=== PATIENT | female | born 1985 | race Caucasian/White ===

== ENCOUNTER 2020-11-15 17:41 | Outpatient (REF) | payer SELFPAY ==
[2020-11-17 10:15] LABS: Varicella IgG Antibody Positive (See Note)
== END 2020-11-15 17:42 | disposition home or self-care (01) ==
LOC: LBN 17:41
PROVIDERS: Visit Provider Nurse Practitioner Family
DX: Z13.9 Encounter for screening, unspecified (principal)
CPT/HCPCS: 86787

== ENCOUNTER 2021-08-04 01:50 | Outpatient (CLI) | payer OTHER, SELFPAY ==
[2021-08-04 12:36] LABS: HCT 37.7 % (36.0-46.0); HGB 12.6 g/dL (11.2-15.7); MCH 31.2 pg (27.0-33.0); MCHC 33.4 % (32.0-36.0); MCV 93 fL (80-95); MPV 10.9 fL (8.0-11.0); Platelet Count 287 10^3/uL (130-400); RBC 4.04 10^6/uL (3.93-5.22); RDW 11.8 % (11.7-14.6); RDW-SD 40.2 fL
[2021-08-04 13:25] LABS: ALT 22 U/L (14-59); AST 13 U/L (15-37); Albumin 3.9 g/dL (3.4-5.0); Alkaline Phosphatase 94 U/L (46-116); Anion Gap 12.6 mmol/L (3-11); BUN 25 mg/dL (7-18); Bilirubin, Total 0.3 mg/dL (0.2-1.0); CO2 25.4 mmol/L (21.0-32.0); CREATININE 0.8 mg/dL (0.55-1.02); Calcium 8.6 mg/dL (8.5-10.1); Calculated LDL 157 mg/dL (<100); Chloride 103 mmol/L (98-107); Cholesterol 245 mg/dL (<200); Glucose 105 mg/dL (74-106); HDL Cholesterol 40 mg/dL (40-60); Potassium 3.7 mmol/L (3.5-5.1); Sodium 141 mmol/L (136-145); TSH (W/Ref FT4) 1.32 uIU/mL (0.36-3.74); Total Protein 7.4 g/dL (6.4-8.2); Triglyceride 242 mg/dL (<150)
[2021-08-07 12:57] LABS: TB Interpretation Negative (Negative)
== END 2021-08-04 01:51 | disposition home or self-care (01) ==
LOC: LBO 01:51
PROVIDERS: PCP Nurse Practitioner; Visit Provider Nurse Practitioner
DX: I10 Essential (primary) hypertension (principal); R53.83 Other fatigue; E66.9 Obesity, unspecified; Z83.3 Family history of diabetes mellitus; Z11.1 Encounter for screening for respiratory tuberculosis
CPT/HCPCS: 36415; 80053; 80061; 85027; 84443; 86480

== ENCOUNTER 2021-08-24 00:53 | Emergency (ER) | payer OTHER, SELFPAY ==
[2021-08-24 00:57] VITALS: BP 145/100; PULSE 117; RESP 18; TEMP 36.4; O2SAT 97
--- NOTE | 2021-08-24 01:15 | W.ED.GENAD ---
Discharge Plan Disposition Patient Disposition: HOME Condition: Stable Discharge Details Clinical Impression: Migraine, Nausea and vomiting Primary Care Provider: Kirsten Fowler ED Provider: Aron Barraza Home Meds and New Rx's Prescriptions: New ondansetron 4 mg tablet,disintegrating 4 mg PO Q8H PRN (Reason: nausea and vomiting) Qty: 30 0RF Continued sumatriptan succinate 50 mg tablet See Rx Instructions PO .COMPLEX Rx Instructions: take 1 tab at onset of headache; if no relief may repeat 1 tab after at least 2 hrs; max = 4 tabs/24 hr PO Ozempic 0.25 mg or 0.5 mg(2 mg/1.5 mL) Pen Injector 0.25 mg SUBCUT 4-8XD Discharge Instructions Instructions: Migraine Headache (ED), Acute Nausea and Vomiting (ED) Additional Instructions: if symptoms continue in a week follow up with your primary care provider you can take ibuprofen and tylenol as needed, follow dosing instructions on packaging if you feel more ill, have persistent vomiting or severe worsening pain return to the emergency department Medical Decision Making 36 yo female who states she has a history of migraines, DM, who comes in with n/v that started about 7 hours ago. She felt well during the day and then started to have nausea that progressed to vomit. She denies fevers, chills, chest pain, shortness of breath. She started to have slowly worsening head pain and states it feels similar to her prior migraines. She arrives stable with normal gait. CN II-XII intact, perrl, eomi, no meningismus, soft nontender abdomen, no focal motor or sensation deficits. Her symptoms seem most consistent with migraine and possible food related illness. No findings on exam to suggest surgical abdominal pathology such as sbo or cholecystitis and do not feel imaging of the abdomen/pelvis indicated. Her symptoms were slowly worsening in terms of her head pain, not thunderclap so doubt intracranial hemorrhage and no findings to suggest keno dealer infection. labs unremarkable and she feels better and would like to go home, stable exam so do not feel further testing indicated. Will provide prn zofran and advised to f/u with pcp and return precautions given Differential Diagnosis Differential Diagnosis: food illness, migraine, gastroenteritis Lab Data Lab results reviewed: Yes I reviewed the patient's lab results. HPI General Mode of arrival: ambulatory. Date/Time Provider Initiated Documentation: 08/24/21 00:53. Limitations to Documentation: no limitations. Information obtained by: patient. History of Present Illness 36 year old F presents to the emergency department with the chief complaint of nausea and vomit, described as moderate, Patient started experiencing this hour(s) (7) and it has been constant. No relieving factors improve symptom(s), No exacerbating factors reported . Patient notes other (migraine). Related Data Home Medications Medication Instructions Recorded Confirmed sumatriptan succinate 50 mg tablet See Rx Instructions PO .COMPLEX 08/03/21 08/24/21 ondansetron 4 mg disintegrating 4 mg PO Q8H PRN nausea and 08/24/21 tablet vomiting #30 tabs semaglutide 0.25 mg or 0.5 mg (2 0.25 mg subcut 4-8XD 08/24/21 08/24/21 mg/1.5 mL) subcutaneous pen injector (Ozempic) Previous Rx's Medication Instructions Recorded ondansetron 4 mg disintegrating 4 mg PO Q8H PRN nausea and 08/24/21 tablet vomiting #30 tabs Allergies Allergy/AdvReac Type Severity Reaction Status Date / Time bismuth subsalicylate Allergy Intermediate rash Verified 08/24/21 01:02 [From Pepto-Bismol] hydrocortisone Allergy Intermediate rash Verified 08/24/21 01:02 penicillin V Allergy Intermediate rash Verified 08/24/21 01:02 Sulfa (Sulfonamide Allergy Intermediate Verified 08/24/21 01:02 Antibiotics) monostat Allergy Intermediate Uncoded 08/24/21 01:02 General Stated Complaint: Nausea/Vomit/Diar LOLIS: 3 Review of Systems All systems reviewed & are unremarkable except as noted in HPI and below Constitutional Constitutional: Denies chills, Denies fever(s) and Denies weakness ENT Ears, Nose, Mouth, and Throat: Denies change in voice Cardiovascular Cardiovascular: Denies chest pain and Denies dyspnea Respiratory Respiratory: Denies cough and Denies dyspnea Gastrointestinal Gastrointestinal: Denies abdominal pain Genitourinary Genitourinary: Denies dysuria Neurologic Neurologic: Denies weakness PFSH All Active Problems (Updated 08/24/21 @ 02:40 by Aron Barraza MD) Migraine (Chronic) Nausea and vomiting (Acute) Obesity with serious comorbidity (Acute) Prediabetes (Acute) Obesity (Chronic) Family history of diabetes mellitus in father (Acute) Family History (Updated 08/02/21 @ 10:29 by Ana Laura Frazier) Father Alcohol use disorder Mother Cervical cancer Ovarian cancer Lung cancer Brain cancer Maternal Grandmother Diabetes Heart disease Hypertension Maternal Grandfather Diabetes Paternal Grandmother Diabetes Paternal Grandfather Diabetes Other Breast cancer Social History (Updated 08/03/21 @ 09:36 by Hedy Polk LPN) Smoking/Tobacco Use Status: Never Smoking risk assessment performed?: Yes Alcohol Intake: current Alcohol Intake frequency: holidays/special occasions only Drug use: Never Substance use type: does not use Adopted: No Caregiver/Support person: No Foster care: No Household members: spouse Housing: apartment Number of Children: 0 Communication Needs: None Education Level: college Details: Associate's Degree Do you need help understanding health information?: Never current occupation: RN Pets and animals: Yes Pets and animals: dog(s) Sexually active: Yes Do you think of yourself as: straight/heterosexual Current gender identity: female What is your relationship status?: living with partner How often do you talk on the phone with friends or family?: three or more times per week How often do you get together with friends or relatives?: three or more times per week Do you belong to any clubs or organized social groups?: no Panel score (0-1 are the most socially isolated patients): 2 What type of physical activity do you participate in: walking Duration: 30-45 minutes/day Frequency: 3-4 times per week Alison/Protestant: None Special alison needs: No Seatbelt use: always Helmet use: Yes Helmet use: always Drive intox or ride w/intox mobile lounge driver or operator: No Working smoke detector in home: Yes Fire extinguisher in home: Yes Carbon monox detector in home: Yes Do you feel safe at home: Yes Do you feel safe in your relationship?: Yes Exam Const General: no acute distress Orientation: alert HENMT Head: normal to inspection Ears: external ears normal General nose exam: external nose normal Mouth: moist mucous membranes Eyes General: appearance normal, both eyes and all related structures Neck Neck: normal visual inspection Resp Effort & Inspection: normal respiratory effort and able to speak in complete sentences Cardio Rate: regular rate GI Palpation: soft and nontender Skin General skin exam: no rashes or lesions noted Neuro General: patient alert and patient oriented x3 Extrem General: normal to inspection Psych Mental Status: mental status grossly normal Course Vital Signs Vital signs: Vital Signs Temperature 36.4 C L 08/24/21 00:57 Pulse 117 H 08/24/21 00:57 Respiratory Rate 18 08/24/21 00:57 Blood Pressure 145/100 H 08/24/21 00:57 Pulse Oximetry 97 08/24/21 00:57 Temperature 36.4 C L 08/24/21 00:57 Temperature Source Temporal Artery Scan 08/24/21 00:57 Pulse 117 H 08/24/21 00:57 Respiratory Rate 18 08/24/21 00:57 Respiratory Effort Non-Labored 08/24/21 01:04 Blood Pressure 145/100 H 08/24/21 00:57 Blood Pressure Position Sitting 08/24/21 00:57 Pulse Oximetry 97 08/24/21 00:57 Oxygen Delivery Method Room Air 08/24/21 00:57 Oxygen Flow Rate 0 08/24/21 00:57
[2021-08-24 01:19] LABS: BE (Venous) -1 mmol/L (-2-3); HCO3 (Venous) 24 mmol/L (23-28); O2 Sat (Venous) 57 %; TCO2 (Venous) 22 mmol/L (24-29); pCO2 (Venous) 40 mmHg (41-51); pO2 (Venous) 30 mmHg
[2021-08-24 01:23] LABS: Abs Immature Grans 0.01 10^3/uL (0.0-0.06); Absolute Basophil Count 0.03 10^3/uL (0.0-0.2); Absolute Eosinophil Count 0.01 10^3/uL (0.0-0.7); Absolute Lymphocyte Count 0.57 10^3/uL (1.2-3.4); Absolute Monocyte Count 0.19 10^3/uL (0.1-0.8); Absolute Neutrophil Count 5.84 10^3/uL (1.2-6.7); Basophils % 0.5; Eosinophils % 0.2; HCT 39.3 % (36.0-46.0); HGB 13.2 g/dL (11.2-15.7); Immature Grans % 0.2; Lymphocytes % 8.6; MCHC 33.6 % (32.0-36.0); MCV 92 fL (80-95); MPV 11.3 fL (8.0-11.0); Monocytes % 2.9; Neutrophils % 87.6; Platelet Count 274 10^3/uL (130-400); RBC 4.26 10^6/uL (3.93-5.22); RDW 11.9 % (11.7-14.6); RDW-SD 39.6 fL; WBC 6.65 10^3/uL (4.4-10.8)
[2021-08-24 01:35] LABS: ALT 30 U/L (14-59); AST 14 U/L (15-37); Alkaline Phosphatase 89 U/L (46-116); Anion Gap 10.7 mmol/L (3-11); BUN 19 mg/dL (7-18); Bilirubin, Total 0.6 mg/dL (0.2-1.0); CO2 24.3 mmol/L (21.0-32.0); CREATININE 0.8 mg/dL (0.55-1.02); Calcium 8.7 mg/dL (8.5-10.1); Chloride 100 mmol/L (98-107); Glucose 156 mg/dL (74-106); Lipase 44 U/L (73-393); Potassium 3.5 mmol/L (3.5-5.1); Sodium 135 mmol/L (136-145); Total Protein 8.3 g/dL (6.4-8.2)
[2021-08-24] MEDS: Ketorolac 15 MG/ML VIAL IVP (01:49)
[2021-08-24] MEDS: Normal Saline 1,000 ML 1000 ML IV (01:49)
[2021-08-24] MEDS: Prochlorperazine 10 MG/2 ML VIAL IVP (01:50)
[2021-08-24] MEDS: Normal Saline 50 ML (01:51)
[2021-08-24 02:26] LABS: Bilirubin Negative (Negative); Blood Moderate (Negative); Clarity Cloudy (Clear); Glucose Negative (Negative); Ketones 15 mg/dL (Negative); Leukocyte Esterase Negative (Negative); Nitrite Negative (Negative); Specific Gravity >= 1.030 (1.005-1.025); Urobilinogen 0.2 EU/dL (Up TO 0.2); pH 5.5 (5-8)
[2021-08-24 02:46] LABS: Bacteria Negative HPF (Negative); C & S Indicated? No; Crystals Moderate Amorphous HPF (Negative); Epithelial Cells Rare HPF (Negative); Mucus Trace (Negative); RBC >50 HPF (0-2); WBC 0-2 HPF (0-5)
[2021-08-24] MEDS: Ondansetron O.D.T. 4 MG TABEF, 3 TABS/BTL PO (02:47)
[2021-08-24 02:48] VITALS: BP 138/85; PULSE 93; RESP 16; O2SAT 96
== END 2021-08-24 02:52 | disposition home or self-care (01) ==
PROVIDERS: Emergency Provider Emergency Medicine; PCP Nurse Practitioner
DX: G43.809 Other migraine, not intractable, without status migrainosus (principal); R11.2 Nausea with vomiting, unspecified
CPT/HCPCS: 36415; 80053; 81025; 82805; 83690; 96361; 96374; 96375; 99284; 81003; 81015; 85025; J0780; J1885

== ENCOUNTER 2022-08-28 02:08 | Outpatient (CLI) | payer BC, SELFPAY ==
[2022-08-30 12:59] LABS: TB Interpretation Negative (Negative)
== END 2022-08-28 02:09 | disposition home or self-care (01) ==
PROVIDERS: PCP Nurse Practitioner; Visit Provider Nurse Practitioner
DX: Z11.1 Encounter for screening for respiratory tuberculosis (principal)
CPT/HCPCS: 36415; 86480

== ENCOUNTER 2023-07-17 05:02 | Outpatient (CLI) | payer OTHER, SELFPAY ==
[2023-07-17 12:17] LABS: Abs Immature Grans 0.01 10^3/uL (0.0-0.06); Absolute Basophil Count 0.05 10^3/uL (0.0-0.2); Absolute Lymphocyte Count 1.85 10^3/uL (1.2-3.4); Absolute Monocyte Count 0.39 10^3/uL (0.1-0.8); Absolute Neutrophil Count 4.82 10^3/uL (1.2-6.7); Basophils % 0.7 %; Eosinophils % 1.4 %; HCT 39.1 % (36.0-46.0); Immature Grans % 0.1 %; Lymphocytes % 25.6 %; MCH 31.8 pg (27.0-33.0); MCHC 33.2 % (32.0-36.0); MCV 96 fL (80-95); MPV 11.7 fL (8.0-11.0); Monocytes % 5.4 %; Neutrophils % 66.8 %; Platelet Count 239 10^3/uL (130-400); RBC 4.09 10^6/uL (3.93-5.22); RDW 12.2 % (11.7-14.6); RDW-SD 42.5 fL; WBC 7.22 10^3/uL (4.4-10.8)
[2023-07-17 12:48] LABS: ALT 30 U/L (14-59); AST 15 U/L (15-37); Albumin 3.8 g/dL (3.4-5.0); Alkaline Phosphatase 82 U/L (46-116); Anion Gap 10.9 mmol/L (3-11); BUN 18 mg/dL (7-18); Bilirubin, Total 0.4 mg/dL (0.2-1.0); CO2 24.1 mmol/L (21.0-32.0); CREATININE 0.7 mg/dL (0.55-1.02); Calcium 8.8 mg/dL (8.5-10.1); Calculated LDL 133 mg/dL (<100); Chloride 107 mmol/L (98-107); Cholesterol 202 mg/dL (<200); Estimated GFR 113.46 (mL/min/1.73m2); Glucose 123 mg/dL (74-106); HDL Cholesterol 40 mg/dL (40-60); Sodium 142 mmol/L (136-145); TSH (W/Ref FT4) 0.58 uIU/mL (0.36-3.74); Total Protein 7.5 g/dL (6.4-8.2); Triglyceride 148 mg/dL (<150)
== END 2023-07-17 05:03 | disposition home or self-care (01) ==
LOC: LBO 05:02
PROVIDERS: PCP Nurse Practitioner; Visit Provider Nurse Practitioner
DX: R73.03 Prediabetes; E78.5 Hyperlipidemia, unspecified
CPT/HCPCS: 36415; 80053; 80061; 84443; 85025

== ENCOUNTER 2023-07-29 14:33 | Emergency (ER) | payer OTHER, SELFPAY ==
[2023-07-29 14:35] VITALS: BP 214/123; PULSE 112; RESP 18; TEMP 36.8; O2SAT 98
[2023-07-29 16:59] LABS: Bilirubin Negative (Negative); Blood Small (Negative); Clarity Clear (Clear); Glucose Negative (Negative); Ketones Negative (Negative); Leukocyte Esterase Negative (Negative); Nitrite Negative (Negative); Specific Gravity >= 1.030 (1.005-1.025); Urobilinogen 0.2 mg/dL (Up to 0.2); pH 5.5 (5-8)
[2023-07-29 17:06] LABS: Bacteria Few HPF (Negative); C & S Indicated? No/Sq. Contamination; Crystals Negative HPF (Negative); Epithelial Cells Many HPF (Negative); Mucus Heavy (Negative)
--- NOTE | 2023-07-29 17:30 | DI.RAD_ITS ---
Exam(s) XR PELVIS AP EXAM: XR PELVIS AP CLINICAL HISTORY: right SI pain, hx scoliosis. TECHNIQUE: 2D digital imaging was performed. Images were obtained. COMPARISON: No exams were available for comparison FINDINGS: BONES: No acute fracture is present. No bony destructive lesion is seen. JOINTS: No dislocation present. No joint space narrowing is present. No ankylosis or erosions are see n. SOFT TISSUE: Normal. IMPRESSION: No acute abnormality. If symptoms persist an SI joint x-ray series should be considered. [place]if[place] arita a CT scan of the pelvis may be obtained. DATA REPOSITORY: RADIATION DOSE DELIVERED:
[2023-07-29] MEDS: Ketorolac 15 MG/ML VIAL IM (18:33)
[2023-07-29] MEDS: Dexamethasone 10 MG/ML VIAL PO (18:33)
[2023-07-29] MEDS: Lidocaine 5% Patch 1 PATCH TP (18:33)
[2023-07-29] MEDS: Cyclobenzaprine 10 MG TAB PO (18:33)
--- NOTE | 2023-07-29 18:42 | ED.GENADUL_ITS ---
Discharge Plan Disposition Patient Disposition: Home Condition: Improving Discharge Details Clinical Impression: Lower back pain Primary Care Provider: Kirsten Fowler ED Provider: Joe Nowak Home Meds and New Rx's Prescriptions: New lidocaine [Lidoderm] 5 % adhesive patch,medicated 1 patch topical DAILY PRNQty: 15 0RF Rx Instructions: leave on most painful area for up to 12 hrs cyclobenzaprine 5 mg tablet 5 mg PO QHS PRN (Reason: muscle spasm) Qty: 7 0RF No Action Ozempic 0.25 mg or 0.5 mg (2 mg/3 mL) pen injector 0.5 mg subcut QWEEK Qty: 3 0RF Rx Instructions: weeks 5-8 Ozempic 1 mg/dose (4 mg/3 mL) pen injector 1 mg subcut QWEEK Qty: 3 0RF Rx Instructions: weeks 9-12 sumatriptan succinate 50 mg tablet See Rx Instructions PO .COMPLEX Qty: 7 2RF Rx Instructions: take 1 tab at onset of headache; if no relief may repeat 1 tab after at least 2 hrs; max = 4 tabs/24 hr PO Discharge Instructions Instructions: Low Back Strain (ED) Stand Alone Forms: Work Release HPI General Date/Time Provider Initiated Documentation: 07/29/23 15:23 . HPI Narrative: 38-year-old female presents with acute on chronic right lower back pain, history of scoliosis. Had a long drive from [facility], pain worse with movement and sitting, no bowel or bladder issues no trauma. Related Data Home Medications Medication Instructions Recorded Confirmed sumatriptan succinate 50 mg tablet See Rx Instructions PO .COMPLEX #7 12/05/21 07/29/23 tabs semaglutide 0.25 mg or 0.5 mg (2 0.5 mg (0.736 mL) subcut QWEEK #3 06/25/23 07/29/23 mg/3 mL) subcutaneous pen injector mL (Ozempic) semaglutide 1 mg/dose (4 mg/3 mL) 1 mg (0.75 mL) subcut QWEEK #3 mL 06/25/23 06/25/23 subcutaneous pen injector (Ozempic) cyclobenzaprine 5 mg tablet 5 mg PO QHS PRN muscle spasm #7 07/29/23 tabs lidocaine 5 % topical patch 1 patch topical DAILY PRN #15 ea 05/27/24 (Lidoderm) Previous Rx's Medication Instructions Recorded sumatriptan succinate 50 mg tablet See Rx Instructions PO .COMPLEX #7 12/05/21 tabs semaglutide 0.25 mg or 0.5 mg (2 0.5 mg (0.736 mL) subcut QWEEK #3 06/25/23 mg/3 mL) subcutaneous pen injector mL (Ozempic) semaglutide 1 mg/dose (4 mg/3 mL) 1 mg (0.75 mL) subcut QWEEK #3 mL 06/25/23 subcutaneous pen injector (Ozempic) cyclobenzaprine 5 mg tablet 5 mg PO QHS PRN muscle spasm #7 07/29/23 tabs lidocaine 5 % topical patch 1 patch topical DAILY PRN #15 ea 07/29/23 (Lidoderm) Allergies Allergy/AdvReac Type Severity Reaction Status Date / Time bismuth subsalicylate Allergy Intermediate rash Verified 07/29/23 14:38 [From Pepto-Bismol] hydrocortisone Allergy Intermediate rash from Verified 07/29/23 14:38 cream penicillin V Allergy Intermediate rash Verified 07/29/23 14:38 Sulfa (Sulfonamide Allergy Intermediate rash Verified 07/29/23 14:38 Antibiotics) monostat Allergy Intermediate cream Uncoded 07/29/23 14:38 General Stated Complaint: Orthopedic LOLIS: 4 Review of Systems Narrative: Review of Systems Constitutional: negative Eyes: negative ENT: negative Cardiovascular: negative Respiratory: negative Gastrointestinal: negative : negative Musculoskeletal: Back pain Skin: negative Neurologic: negative Psych: negative Exam Narrative Exam Narrative: Physical Examination General: alert, awake, cooperative, resting comfortably, no acute distress HEENT: normocephalic, atraumatic Neck: supple, trachea midline; full ROM Chest: normal to inspection Respiratory: normal respiratory effort, speaking in full sentences Back: No midline spinal tenderness step-off crepitus or deformity Skin: no lesions, rashes or trauma appreciated Neuro: AAOx3, normal speech, moving all extremities; ambulatory without assistance no ataxia, full strength upper and lower extremities bilaterally Extremities: No signs of trauma Psych: Appropriate mood and affect Course Vital Signs Vital signs: Vital Signs Temperature 36.8 C 07/29/23 14:35 Pulse 112 H 07/29/23 14:35 Respiratory Rate 18 07/29/23 14:35 Blood Pressure 214/123 H 07/29/23 14:35 Pulse Oximetry 98 07/29/23 14:35 Temperature 36.8 C 07/29/23 14:35 Temperature Source Skin 07/29/23 14:35 Pulse 112 H 07/29/23 14:35 Respiratory Rate 18 07/29/23 14:35 Respiratory Effort Normal, Non-Labored 07/29/23 14:38 Blood Pressure 214/123 H 07/29/23 14:35 Blood Pressure Position Sitting 07/29/23 14:35 Pulse Oximetry 98 07/29/23 14:35 Oxygen Delivery Method Room Air 07/29/23 14:35 Oxygen Flow Rate 0 07/29/23 14:35 Pain Level 8 07/29/23 14:35 Lab/Test Results Lab/Test Results: Laboratory Tests Range/Units 07/29/23 16:45 Urine Color (Yellow) Yellow Urine Clarity (Clear) Clear Urine pH (5-8) 5.5 Ur Specific [place] (1.005-1.025) >= 1.030 H Urine Protein (Neg-Trace) mg/dL 30 H Urine Ketones (Negative) mg/dL Negative Urine Blood (Negative) Small H Urine Nitrite (Negative) Negative Urine Bilirubin (Negative) Negative Urine Urobilinogen (Up to 0.2) mg/dL 0.2 Ur Leukocyte Esterase (Negative) Negative Urine RBC (0-2) HPF 5-10 H Urine WBC (0-5) HPF 3-5 Ur Epithelial Cells (Negative) HPF Many Urine Crystals (Negative) HPF Negative Urine Bacteria (Negative) HPF Few Urine Mucus (Negative) Heavy Ur Culture Indicated? No/Sq. Contamination Urine Glucose (Negative) mg/dL Negative POC- Test(urine) Negative Medical Decision Making 38-year-old female history of scoliosis presents with acute on chronic right lower back discomfort, had recent long drive from [place], pain worse with movement and with sitting down, no bowel or bladder issues no trauma, afebrile nontoxic, no midline spinal tenderness, pain overlying SI joint on right, consider sacroiliitis versus osteoarthritis versus early sciatica given some radiation down right leg. Low suspicion for spinal epidural abscess spinal epidural hematoma or spinal tumor or cauda equina. Trial of analgesia anti- inflammatory. Tachycardia and hypertension like related to discomfort. Close reassessment likely home with close follow-up 19: 12 feeling more comfortable after medication. Home care instruction return precautions given Quality:SDOH Health Related Social Needs: No Data to Display PFSH All Active Problems (Updated 07/29/23 @ 19:13 by Joe Nowak MD) Lower back pain (Acute) Hyperlipidemia (Acute) Prediabetes (Acute) Obesity (Chronic) Family history of diabetes mellitus in father (Acute) Family History Father Alcohol use disorder Mother Cervical cancer Ovarian cancer Lung cancer Brain cancer Maternal Grandmother Diabetes Heart disease Hypertension Maternal Grandfather Diabetes Paternal Grandmother Diabetes Paternal Grandfather Diabetes Other Breast cancer Social History (Updated 06/25/23 @ 16:43 by Hedy Polk LPN) Smoking/Tobacco Use Status: Never Smoking risk assessment performed?: Yes Alcohol Intake: current Alcohol Intake frequency: holidays/special occasions only Drug use: Never Substance use type: does not use Adopted: No Caregiver/Support person: No Foster care: No Household members: significant other Housing: apartment Number of Children: 0 Communication Needs: None Education Level: college Details: Associate's Degree Do you need help understanding health information?: Never current occupation: RN Pets and animals: Yes Pets and animals: dog(s) Sexually active: Yes Do you think of yourself as: straight/heterosexual Current gender identity: female What is your relationship status?: living with partner How often do you talk on the phone with friends or family?: three or more times per week How often do you get together with friends or relatives?: three or more times per week Do you belong to any clubs or organized social groups?: no Panel score (0-1 are the most socially isolated patients): 2 What type of physical activity do you participate in: walking Duration: 30-45 minutes/day Frequency: 3-4 times per week Alison/Shinto: None Special alison needs: No Seatbelt use: always Helmet use: Yes Helmet use: always Drive intox or ride w/intox truck driver instructor: No Working smoke detector in home: Yes Fire extinguisher in home: Yes Carbon monox detector in home: Yes Do you feel safe at home: Yes Do you feel safe in your relationship?: Yes
--- NOTE | 2023-07-29 18:46 | DI.VRAD_ITS ---
PROCEDURE INFORMATION: Exam: XR Pelvis Exam date and time: 07/29/2023 6:00 PM Age: 38 years old Clinical indication: Other: Right si pain, HX scoliosis TECHNIQUE: Imaging protocol: Radiologic exam of the pelvis. Views: 1 or 2 view. COMPARISON: No relevant prior studies available. FINDINGS: Bones/joints: Unremarkable. No acute fracture. Soft tissues: Unremarkable. IMPRESSION: No acute findings. If clinical symptoms persist recommend followup film in 7-10 days. Dictated and Authenticated by: Serena Abbott MD. Ordering:IRWIN Diaz MD
== END 2023-07-29 19:28 | disposition home or self-care (01) ==
PROVIDERS: Emergency Provider Emergency Medicine; PCP Nurse Practitioner
DX: M54.50 Low back pain, unspecified (principal); G89.29 Other chronic pain; E78.5 Hyperlipidemia, unspecified; E66.9 Obesity, unspecified; Z79.899 Other long term (current) drug therapy
CPT/HCPCS: 81025; 96372; 99284; 72170; 81003; 81015; J1100; J1885

== ENCOUNTER 2023-08-07 15:06 | Outpatient (CLI) | payer OTHER, SELFPAY ==
--- NOTE | 2023-08-07 14:45 | DI.RAD_ITS ---
Exam(s) XR KNEE RT 3V AP,LAT,JULITO EXAM: XR KNEE RT 3V AP,LAT,JULITO CLINICAL HISTORY: RIGHT KNEE PAIN. TECHNIQUE: 2D digital imaging was performed of the right knee. Three views obtained. Merchant, AP an d lateral views were obtained. COMPARISON: No exams were available for comparison FINDINGS: BONES: No acute fracture is present. No bony destructive lesion is seen. There is a mildly expansile lesion in the proximal diaphysis of the right fibula. It is incompletely imaged on this examination. JOINTS: The knee is normally aligned. There is a small joint effusion. SOFT TISSUE: Normal. IMPRESSION: 1. No acute fracture or dislocation. 2. Small joint effusion. 3. Mildly expansile lesion seen in the proximal fibular shaft. Dedicated x-ray of the right tibia an d fibula is recommended for further evaluation. DATA REPOSITORY: RADIATION DOSE DELIVERED:
== END 2023-08-07 15:07 | disposition home or self-care (01) ==
LOC: DIORS 15:07
PROVIDERS: PCP Nurse Practitioner; Visit Provider Student in an Organized Health Care Education/Training Program
DX: M25.561 Pain in right knee (principal)
CPT/HCPCS: 73562

== ENCOUNTER → 2023-08-22 00:11 | Outpatient (CLI) | payer OTHER, SELFPAY ==
--- NOTE | 2023-08-22 06:45 | DI.MRI_ITS ---
Exam(s) MR LOWER JOINT RT WO EXAM: MR LOWER JOINT RT WO CLINICAL HISTORY: R KNEE PAIN, prox fibula simple bone cyst, internal derangement, M23.91. TECHNIQUE: Multiplanar multisequence MRI was performed. COMPARISON: CR XR KNEE RT 3V AP,LAT,JULITO from 08/07/2023 FINDINGS: BONES: There is no fracture or contusion pattern. A benign-appearing expansile lesion is seen in the proximal fibula. It is incompletely imaged on this examination. No associated soft tissue mass or i nflammation is seen. The cortex appears intact. JOINTS: There is mild chondromalacia in the medial femoral condyle. There is a small amount of fluid in the joint space. TENDONS: Extensor mechanism: Unremarkable. Medial retinaculum: Unremarkable. Lateral retinaculum: Unremarkable. Popliteus: Unremarkable. MUSCLES: Unremarkable. MENISCI: The medial meniscus is unremarkable. The lateral meniscus is unremarkable. SOFT TISSUES: There is a cystic area anterior to the proximal tibial fibular joint. It appears to co mmunicate with this area LIGAMENTS: Anterior Cruciate: Unremarkable. Posterior Cruciate: Unremarkable. Medial Collateral:Unremarkable. Lateral Collateral: Unremarkable. OTHER: IMPRESSION: 1. No evidence of a meniscal or ligament tear. 2. Mild chondromalacia involving the medial femoral condyle. 3. Small joint effusion. 4. Cystic area anterior medial to the proximal tibial fibular joint. This may represent a ganglion c yst. It does appear to communicate with the proximal tibial fibular joint. DATA REPOSITORY:
== END ==
PROVIDERS: PCP Nurse Practitioner; Visit Provider Student in an Organized Health Care Education/Training Program
DX: M94.261 Chondromalacia, right knee (principal)
CPT/HCPCS: 73721

== ENCOUNTER 2023-08-28 07:49 | Outpatient (CLI) | payer OTHER, SELFPAY ==
[2023-08-28 08:18] LABS: ESR 4 mm/hr (0-20)
[2023-08-28 09:23] LABS: C-Reactive Protein < 0.50 mg/dL (<or=0.5)
[2023-08-28 20:03] LABS: Rheumatoid Factor <8.6 IU/mL (<12.0)
[2023-08-29 08:40] LABS: Cyclic Citrullinated Peptide <2.5 U/mL (<5.0)
[2023-08-29 11:01] LABS: Lyme Ab w Rflx to Lyme Confirm Negative (Negative)
[2023-08-29 14:34] LABS: ANA Interpretation Negative (Negative)
[2023-08-30 13:25] LABS: Anaplasma phagocytophilum Negative (Negative); B. miyamotoi PCR Negative (Negative); Babesia divergens/MO-1 Negative (Negative); Babesia duncani Negative (Negative); Babesia microti Negative (Negative); Ehrlichia chaffeensis Negative (Negative); Ehrlichia ewingii/canis Negative (Negative); Ehrlichia muris eauclairensis Negative (Negative)
[2023-08-30 14:13] LABS: TB Interpretation Negative (Negative); TB1 Ag minus Nil 0.01 IU/ml; TB2 Ag minus Nil 0.02 IU/mL
== END 2023-08-28 07:50 | disposition home or self-care (01) ==
LOC: LBO 07:49
PROVIDERS: PCP Nurse Practitioner; Visit Provider Student in an Organized Health Care Education/Training Program
DX: M25.461 Effusion, right knee (principal); Z11.1 Encounter for screening for respiratory tuberculosis
CPT/HCPCS: 36415; 85652; 86200; 87798; 86038; 86140; 86431; 86480; 86618

== ENCOUNTER 2024-02-10 13:56 | Emergency (ER) | payer OTHER, SELFPAY ==
[2024-02-10 14:03] VITALS: BP 157/108; PULSE 85; RESP 18; TEMP 36.8; O2SAT 98
--- NOTE | 2024-02-10 14:15 | DI.RAD_ITS ---
Exam(s) XR ANKLE RT COMPLETE EXAM: XR ANKLE RT COMPLETE CLINICAL HISTORY: pain s/p twisting ankle 4 days ago. TECHNIQUE: 2D digital imaging was performed. Three views. COMPARISON: No exams were available for comparison FINDINGS: BONES: No acute fracture is present. No bony destructive lesion is seen. Small spur at the Lawanda s insertion. JOINTS: The ankle mortise is normally aligned. Mild degenerative changes fibula talar joint. SOFT TISSUE: Normal. IMPRESSION: No acute abnormality DATA REPOSITORY: RADIATION DOSE DELIVERED:
--- NOTE | 2024-02-10 14:19 | W.ED.GENAD ---
Discharge Plan Disposition Patient Disposition: Home Condition: Stable Discharge Details Clinical Impression: Right ankle sprain Primary Care Provider: Kirsten Fowler ED Provider: Aron Barraza Home Meds and New Rx's Prescriptions: Continued Ozempic 1 mg/dose (4 mg/3 mL) pen injector 1 mg subcut QWEEK Qty: 3 6RF sumatriptan succinate 50 mg tablet 50 mg PO PRN Rx Instructions: take 1 tab at onset of headache; if no relief may repeat 1 tab after at least 2 hrs; max = 4 tabs/24 hr orally PRN; Discharge Instructions Additional Instructions: Your x-ray did not show any fractures if you are not improving in a week follow-up with your primary care provider Return to the emergency department if you feel more ill or have severe worsening pain. HPI General Mode of arrival: ambulatory. Date/Time Provider Initiated Documentation: 02/10/24 13:57. Limitations to Documentation: no limitations. Information obtained by: patient. History of Present Illness 38 year old F presents to the emergency department with the chief complaint of right ankle pain, described as moderate, Quality is described as aching, and is localized to the right and lower extremity. Patient started experiencing this day(s) (4) and it has been constant. Rest improves symptom(s), Movement worsens symptoms . Patient notes no other symptoms.. Related Data Home Medications ?Medication ?Instructions ?Recorded ?Confirmed semaglutide 1 mg/dose (4 mg/3 mL) 1 mg (0.75 mL) subcut QWEEK #3 mL 09/24/23 02/10/24 subcutaneous pen injector (Ozempic) sumatriptan succinate 50 mg tablet 50 mg PO PRN 02/10/24 Previous Rx's ?Medication ?Instructions ?Recorded semaglutide 1 mg/dose (4 mg/3 mL) 1 mg (0.75 mL) subcut QWEEK #3 mL 09/24/23 subcutaneous pen injector (Ozempic) Allergies Allergy/AdvReac Type Severity Reaction Status Date / Time bismuth subsalicylate (From Allergy Intermediate rash Verified 02/10/24 14:08 Pepto-Bismol) hydrocortisone Allergy Intermediate rash from Verified 02/10/24 14:08 cream penicillin V Allergy Intermediate rash Verified 02/10/24 14:08 Sulfa (Sulfonamide Allergy Intermediate rash Verified 02/10/24 14:08 Antibiotics) monostat Allergy Intermediate cream Uncoded 02/10/24 14:08 General Stated Complaint: Orthopedic LOLIS: 4 Review of Systems All systems reviewed & are unremarkable except as noted in HPI and below Exam Const General: no acute distress Orientation: alert HENMT Head: normal to inspection Ears: external ears normal General nose exam: external nose normal Mouth: moist mucous membranes Eyes General: appearance normal, both eyes and all related structures Neck Neck: normal visual inspection Resp Effort & Inspection: normal respiratory effort and able to speak in complete sentences Cardio Rate: regular rate Neuro General: patient alert and patient oriented x3 Extrem General: full ROM and capillary refill normal Psych Mental Status: mental status grossly normal Course Vital Signs Vital signs: Vital Signs Temperature 36.8 C 02/10/24 14:03 Pulse 85 02/10/24 14:03 Respiratory Rate 18 02/10/24 14:03 Blood Pressure 157/108 H 02/10/24 14:03 Pulse Oximetry 98 02/10/24 14:03 Temperature 36.8 C 02/10/24 14:03 Pulse 85 02/10/24 14:03 Respiratory Rate 18 02/10/24 14:03 Blood Pressure 157/108 H 02/10/24 14:03 Pulse Oximetry 98 02/10/24 14:03 Oxygen Delivery Method Room Air 02/10/24 14:03 Oxygen Flow Rate 0 02/10/24 14:03 Medical Decision Making 38-year-old female who says she was putting groceries in her car 4 days ago when she twisted her right ankle. She did not fall or hit her head or have other injuries. She denies pain elsewhere other than her right lateral ankle. She has tenderness over the lateral malleolus on the right ankle, there no tenderness to the posterior, anterior lateral ankle, no tenderness in the foot. Intact pulses. No tenderness in the knee or proximal to mid tib-fib. Has intact range of motion but with pain over the lateral malleolus. No findings on exam to suggest Achilles tendon injury, she has intact plantarflexion when the calf is squeezed and no posterior ankle pain or tenderness. I suspect sprain but will obtain x-rays to evaluate for fracture X-ray negative on my read and radiology also advised no acute findings. Patient stable, offered ankle brace but she declined. She will follow-up with her PCP if not improving in a week and return precautions given. Differential Diagnosis Differential Diagnosis: Sprain, fracture Quality:SDOH Health Related Social Needs: No Data to Display PFSH All Active Problems (Updated 02/10/24 @ 14:57 by Aron Barraza MD) Right ankle sprain (Acute) Effusion, right knee (Acute) Internal derangement of right knee (Acute) Has been seen by Dr Lewis and 2nd opinion with Dr Cohen at [facility] Hyperlipidemia (Acute) Prediabetes (Acute) Obesity (Chronic) Family history of diabetes mellitus in father (Acute) Family History Father Alcohol use disorder Mother Cervical cancer Ovarian cancer Lung cancer Brain cancer Maternal Grandmother Diabetes Heart disease Hypertension Maternal Grandfather Diabetes Paternal Grandmother Diabetes Paternal Grandfather Diabetes Other Breast cancer Social History (Updated 06/25/23 @ 16:43 by Hedy Polk LPN) Smoking/Tobacco Use Status: Never Smoking risk assessment performed?: Yes Alcohol Intake: current Alcohol Intake frequency: holidays/special occasions only Drug use: Never Substance use type: does not use Adopted: No Caregiver/Support person: No Foster care: No Household members: significant other Housing: apartment Number of Children: 0 Communication Needs: None Education Level: college Details: Associate's Degree Do you need help understanding health information?: Never current occupation: RN Pets and animals: Yes Pets and animals: dog(s) Sexually active: Yes Do you think of yourself as: straight/heterosexual Current gender identity: female What is your relationship status?: living with partner How often do you talk on the phone with friends or family?: three or more times per week How often do you get together with friends or relatives?: three or more times per week Do you belong to any clubs or organized social groups?: no Panel score (0-1 are the most socially isolated patients): 2 What type of physical activity do you participate in: walking Duration: 30-45 minutes/day Frequency: 3-4 times per week Alison/Uatsdin: None Special alison needs: No Seatbelt use: always Helmet use: Yes Helmet use: always Drive intox or ride w/intox electric pile driver operator: No Working smoke detector in home: Yes Fire extinguisher in home: Yes Carbon monox detector in home: Yes Do you feel safe at home: Yes Do you feel safe in your relationship?: Yes
== END 2024-02-10 15:02 | disposition home or self-care (01) ==
PROVIDERS: Emergency Provider Emergency Medicine; PCP Nurse Practitioner
DX: S93.401A Sprain of unspecified ligament of right ankle, initial encounter (principal); E78.5 Hyperlipidemia, unspecified; X50.1XXA Overexertion from prolonged static or awkward postures, initial encounter; Y93.89 Activity, other specified; Y92.89 Other specified places as the place of occurrence of the external cause
CPT/HCPCS: 99283; 73610

== ENCOUNTER 2024-02-22 12:01 | Emergency (ER) | payer OTHER, SELFPAY ==
--- NOTE | 2024-02-22 12:08 | ED.GENADUL_ITS ---
Discharge Plan Disposition Patient Disposition: Home Discharge Details Clinical Impression: Gastroenteritis Primary Care Provider: Kirsten Fowler ED Provider: Edwin Parsons Home Meds and New Rx's Prescriptions: New ondansetron 4 mg tablet,disintegrating 4 mg PO BID 5 Days Qty: 10 0RF Continued Ozempic 1 mg/dose (4 mg/3 mL) pen injector 1 mg subcut QWEEK Qty: 3 6RF sumatriptan succinate 50 mg tablet 50 mg PO PRN PRN Rx Instructions: take 1 tab at onset of headache; if no relief may repeat 1 tab after at least 2 hrs; max = 4 tabs/24 hr orally PRN; Discharge Instructions Instructions: Viral gastroenteritis in adults Additional Instructions: You are seen in the emergency department for your nausea vomiting and diarrhea. You may have a viral infection. As we discussed if you develop fevers worsening pain or cannot eat or drink please return to the emergency department for reassessment. Otherwise please follow-up with your primary care provider next week. Stand Alone Forms: Work Release Discharge Data Discharge Date/Time-TO BE ENTERED AT DEPARTURE: 02/22/24 14:08 HPI General Date/Time Provider Initiated Documentation: 02/22/24 12:07 . 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 Patient had no migratory pain and no specific right lower quadrant tenderness to suggest appendicitis. No rash to abdomen to suggest zoster. No epigastric tenderness and no history of alcohol abuse to suggest increased risk for pancreatitis. No dysuria nor frequency making my suspicion low for UTI. Given diarrhea without shortness of breath I am not suspicious for PE ED so I did not send a D-dimer. No chest pain to suggest ACS so did not obtain ECG. No abnormal vaginal discharge to suggest sexually transmitted infection.Patient denies black or bloody stools so not suspicious for any acute GI bleed so I do not feel that the patient requires assessment of her hemoglobin. I considered sepsis however patient is not hypotensive nor tachypneic. Given her more likely viral gastroenteritis I felt that the risks of blood cultures empiric antibiotics and assessment of lactate outweighed the benefits. 3:30 PM Patient had persistent nausea despite ondansetron. Exterior with IV ondansetron and obtain basic labs which are reassuring. Patient received 1 L of IV fluids. Her heart rate normalized. Her blood pressure improved without intervention. She was able to tolerate p.o. We discussed that she should return to the ED if she developed worsening abdominal cramping any fevers could not tolerate p.o. I sent her with a prescription for ondansetron. She understood her return indications and was discharged with an empiric trial of expectant outpatient management. 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 She reportedly began developing a crampy abdominal pain associated with nausea vomiting and diarrhea at approximately 8:30 PM last night. She has been unable to tolerate p.o. subsequently. She has had no surgeries in the past to her abdomen. She denies dysuria and frequency. She endorses chills but has not had any reported fevers. She has no history of ureterolithiasis. She endorses central constant cramping abdominal pain. No abnormal vaginal discharge. Exam General: Uncomfortable-appearing in no acute distress speaking in complete sentences. Head: Normocephalic, atraumatic. Eye:[Pupils equal, round reactive to light.] Extraocular eye movements intact. No conjunctival injection. No scleral icterus. Ear, nose, mouth, throat: Grossly normal inspection. Normal voice, handling sec retions normally. Neck: Trachea midline. Cardiovascular: Well-perfused distal extremities. Respiratory: Nonlabored respiration. Clear lungs bilaterally. Gastrointestinal: Nondistended abdomen. Soft. Minimal periumbilical abdominal tenderness. No rebound. No guarding. No right lower quadrant tenderness. No right upper quadrant tenderness. No rash abdomen. Musculoskeletal: No edema. Moving all 4 extremities spontaneously. Skin: Normal for age and race, grossly normal temperature and turgor. No acute rash. Neurologic: Alert and appropriate, no apparent acute deficits. Psychiatric: Mood and manner are appropriate. Grooming and personal hygiene are appropriate. Related Data Home Medications ?Medication ?Instructions ?Recorded ?Confirmed semaglutide 1 mg/dose (4 mg/3 mL) 1 mg (0.75 mL) subcut QWEEK #3 mL 09/24/23 02/22/24 subcutaneous pen injector (Ozempic) sumatriptan succinate 50 mg tablet 50 mg PO PRN PRN 02/10/24 02/22/24 ondansetron 4 mg disintegrating 4 mg PO BID 5 days #10 tabs 02/22/24 tablet Previous Rx's ?Medication ?Instructions ?Recorded semaglutide 1 mg/dose (4 mg/3 mL) 1 mg (0.75 mL) subcut QWEEK #3 mL 09/24/23 subcutaneous pen injector (Ozempic) ondansetron 4 mg disintegrating 4 mg PO BID 5 days #10 tabs 02/22/24 tablet Allergies Allergy/AdvReac Type Severity Reaction Status Date / Time bismuth subsalicylate (From Allergy Intermediate rash Verified 02/22/24 12:14 Pepto-Bismol) hydrocortisone Allergy Intermediate rash from Verified 02/22/24 12:14 cream penicillin V Allergy Intermediate rash Verified 02/22/24 12:14 Sulfa (Sulfonamide Allergy Intermediate rash Verified 02/22/24 12:14 Antibiotics) monostat Allergy Intermediate cream Uncoded 02/22/24 12:14 General LOLIS: 4 Medical Decision Making Quality:SDOH Health Related Social Needs: No Data to Display PFSH All Active Problems (Updated 02/22/24 @ 14:00 by Edwin Parsons MD) Gastroenteritis (Acute) Right ankle sprain (Acute) Effusion, right knee (Acute) Internal derangement of right knee (Acute) Has been seen by Dr Lewis and 2nd opinion with Dr Cohen at [facility] Hyperlipidemia (Acute) Prediabetes (Acute) Obesity (Chronic) Family history of diabetes mellitus in father (Acute) Family History Father Alcohol use disorder Mother Cervical cancer Ovarian cancer Lung cancer Brain cancer Maternal Grandmother Diabetes Heart disease Hypertension Maternal Grandfather Diabetes Paternal Grandmother Diabetes Paternal Grandfather Diabetes Other Breast cancer Social History (Updated 06/25/23 @ 16:43 by Hedy Polk LPN) Smoking/Tobacco Use Status: Never Smoking risk assessment performed?: Yes Alcohol Intake: current Alcohol Intake frequency: holidays/special occasions only Drug use: Never Substance use type: does not use Adopted: No Caregiver/Support person: No Foster care: No Household members: significant other Housing: apartment Number of Children: 0 Communication Needs: None Education Level: college Details: Associate's Degree Do you need help understanding health information?: Never current occupation: RN Pets and animals: Yes Pets and animals: dog(s) Sexually active: Yes Do you think of yourself as: straight/heterosexual Current gender identity: female What is your relationship status?: living with partner How often do you talk on the phone with friends or family?: three or more times per week How often do you get together with friends or relatives?: three or more times per week Do you belong to any clubs or organized social groups?: no Panel score (0-1 are the most socially isolated patients): 2 What type of physical activity do you participate in: walking Duration: 30-45 minutes/day Frequency: 3-4 times per week Alison/Gnosticist: None Special alison needs: No Seatbelt use: always Helmet use: Yes Helmet use: always Drive intox or ride w/intox 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
[2024-02-22 12:10] VITALS: BP 157/96; PULSE 116; RESP 22; TEMP 37.5; O2SAT 98
[2024-02-22 12:13] VITALS: BP 157/96; PULSE 116; RESP 22; TEMP 37.5; O2SAT 98
[2024-02-22] MEDS: Ondansetron O.D.T. 4 MG TABEF PO (12:32)
[2024-02-22 13:24] VITALS: BP 129/80; PULSE 104; RESP 18; O2SAT 98
[2024-02-22] MEDS: Normal Saline 500 ML 1000 ML IV (13:31)
[2024-02-22] MEDS: Ondansetron 4 MG/2 ML VIAL IVP (13:32)
[2024-02-22 13:34] LABS: Abs Immature Grans 0.03 10^3/uL (0.0-0.06); Absolute Basophil Count 0.02 10^3/uL (0.0-0.2); Absolute Lymphocyte Count 0.66 10^3/uL (1.2-3.4); Absolute Monocyte Count 0.34 10^3/uL (0.1-0.8); Absolute Neutrophil Count 9.34 10^3/uL (1.2-6.7); Basophils % 0.2 %; HCT 44.6 % (36.0-46.0); Immature Grans % 0.3 %; Lymphocytes % 6.4 %; MCH 31.4 pg (27.0-33.0); MCHC 33.6 % (32.0-36.0); MCV 94 fL (80-95); MPV 10.9 fL (8.0-11.0); Monocytes % 3.3 %; Neutrophils % 89.8 %; Platelet Count 292 10^3/uL (130-400); RBC 4.77 10^6/uL (3.93-5.22); RDW 12.2 % (11.7-14.6); RDW-SD 42.5 fL; WBC 10.39 10^3/uL (4.4-10.8)
[2024-02-22 13:45] LABS: HCG Qual (Serum) Negative
[2024-02-22 13:51] LABS: ALT 28 U/L (14-59); AST 12 U/L (15-37); Albumin 4.5 g/dL (3.4-5.0); Alkaline Phosphatase 106 U/L (46-116); Anion Gap 10.6 mmol/L (3-11); BUN 19 mg/dL (7-18); Bilirubin, Total 0.74 mg/dL (0.2-1.0); CO2 27.4 mmol/L (21.0-32.0); CREATININE 0.9 mg/dL (0.55-1.02); Calcium 9.2 mg/dL (8.5-10.1); Chloride 102 mmol/L (98-107); Estimated GFR 83.92 (mL/min/1.73m2); Glucose 117 mg/dL (74-106); Potassium 3.6 mmol/L (3.5-5.1); Sodium 140 mmol/L (136-145); Total Protein 9.2 g/dL (6.4-8.2)
[2024-02-22 14:02] VITALS: PULSE 94; O2SAT 98
[2024-02-22 14:08] VITALS: PULSE 94; O2SAT 98
[2024-02-22 14:10] LABS: Lab Add On Test DONE
[2024-02-22 14:24] LABS: Lipase 19 U/L (<78)
== END 2024-02-22 14:08 | disposition home or self-care (01) ==
PROVIDERS: Emergency Provider Emergency Medicine; PCP Nurse Practitioner
DX: K52.9 Noninfective gastroenteritis and colitis, unspecified (principal); R11.10 Vomiting, unspecified; R19.7 Diarrhea, unspecified
CPT/HCPCS: 80053; 83690; 96361; 96374; 99284; 84703; 85025; 99283; J2405